=== PATIENT | male | born 1955 | race Caucasian/White ===

== ENCOUNTER 2021-09-04 14:19 | Emergency (ER) | payer OTHER, SELFPAY ==
[2021-09-04 14:29] VITALS: BP 179/59; PULSE 76; RESP 20; TEMP 36.5; O2SAT 96
--- NOTE | 2021-09-04 14:50 | ED.GENADULT ---
HPI - General Adult General Chief complaint: Upper Respiratory Infection Stated complaint: COUGH/CONGESTION Source: patient Mode of arrival: ambulatory Limitations: no limitations History of Present Illness HPI narrative: 66 y/o male. Pres[facility] to [facility] today with acute complaints of nasal congestion and cough, worsening in the past 5 days. Client tells me that he gets this a lot this time of year, and its usually a sinus infection . He states that he has been having purulent yellow nasal discharge. No fever, chills. No SPARROW, sore throat, Otalgia. No chest pain, palpitations, dyspnea, edema. He has not yet sought out medical evaluation until now. No ill contact exposure. He is without additional acute c/o illness upon PE. Related Data Allergies Allergy/AdvReac Type Severity Reaction Status Date / Time No Known Allergies Allergy Verified 09/04/21 14:29 Review of Systems Review of Systems: CONSTITUTIONAL: Denies fever, chills, sweats. EYES: Denies visual changes, redness, discharge. ENT: Denies rhinorrhea, congestion, sore throat, otalgia. CARDIOVASCULAR: RT chest wall pain. Denies palpitations, edema. RESPIRATORY: Denies dyspnea, wheezing, cough GASTROINTESTINAL: Denies abdominal pain, nausea, vomiting, diarrhea. GENITOURINARY: Denies dysuria, hematuria, abnormal discharge SKIN: Denies rash or itching. MUSCULOSKELETAL: Denies acute back pain, joint pain, or myalgia. NEUROLOGIC: Denies numbness, or focal weakness. PSYCHIATRIC: Denies anxiety or depression. All systems reviewed & are unremarkable except as noted in HPI and below Exam Narrative: GENERAL: This is a well-nourished, well-developed adult, in no apparent distress. HEAD: normocephalic, atraumatic. EYES: PERRL. Sclera clear/white. EARS: External ears normal, auditory canals clear and without drainage, TMs normal. NOSE: External nose normal. Positive Rhinorrhea, purulent bilateral nasal discharge. no obstruction, nares patent. THROAT: Mucous membranes moist, posterior pharynx erythematous. No exudates. NECK: Neck supple, non-tender without lymphadenopathy, masses or thyromegaly. CARDIOVASCULAR: Regular rate and rhythm without murmurs, gallops, or rubs. RESPIRATORY: Upper airway Rhonchi, cleared with cough. Breath sounds equal bilaterally. No wheezes, rales, or distress. GASTROINTESTINAL: Abdomen soft, non-tender, nondistended. Bowel sounds are active. No guarding. SKIN: warm, intact with no suspicious lesions or rash, good texture and turgor. NEURO: Alert, active, and age appropriate. No focal neurologic deficits. Course Vital Signs Vital signs: Vital Signs Temperature 36.5 C 09/04/21 14:29 Pulse Rate 76 09/04/21 14:29 Respiratory Rate 20 09/04/21 14:29 Blood Pressure 179/59 H 09/04/21 14:29 Pulse Oximetry 96 09/04/21 14:29 Temperature 36.5 C 09/04/21 14:29 Pulse Rate 76 09/04/21 14:29 Respiratory Rate 20 09/04/21 14: Blood Pressure 179/59 H 09/04/21 14:29 Pulse Oximetry 96 09/04/21 14:29 The patient has been informed that they may have pre-hypertension or Hypertension based on a BP reading in the clinic. It is recommended that the patient call the primary care provider listed on their discharge instructions or a physician of their choice as soon as possible (within 1-2week) to arrange follow up for further evaluation of possible pre-hypertension or hypertension. Medical Decision Making Differential Diagnosis Differential Diagnosis: Differential Diagnosis: Consideration of the following conditions may be warranted for the presenting problem, they are not final diagnoses: upper respiratory infection, otitis media, sinusitis, RSV viral infection, bronchitis, pharyngitis, Streptococcal sore throat, COVID-19, and other. Medical Records Medical records reviewed: Yes I reviewed the external patient's medical records. Vital Signs Vital Signs: Vital Signs Temperature 36.5 C 09/04/21 14:29 Pu
== END 2021-09-04 14:50 | disposition home or self-care (01) ==
PROVIDERS: Emergency Provider Nurse Practitioner Adult Health
DX: J06.9 Acute upper respiratory infection, unspecified (principal)
CPT/HCPCS: 99203; G0463

== ENCOUNTER 2022-02-26 12:33 | Emergency (ER) | payer OTHER, SELFPAY ==
[2022-02-26 12:45] VITALS: BP 199/63; PULSE 67; RESP 16; TEMP 36.2; O2SAT 98
--- NOTE | 2022-02-26 13:29 | ED.URI ---
HPI - URI/Sore Throat General Chief Complaint: Upper Respiratory Infection Stated Complaint: upper respiratory Time Seen by Provider: 02/26/22 13:21 Source: patient Mode of arrival: ambulatory Limitations: no limitations History of Present Illness HPI Narrative: Patient presents today complaining of a productive cough x2 weeks with nasal drainage. Reports sputum is yellow/green. Denies shortness of breath, fever, nasal congestion, or any additional symptoms. He has been taking Tylenol for his symptoms. 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 Patient was on doxycycline in November for 30 days prescribed by his PCP for unknown symptoms. Reports history of asthma as a child, but outgrew it. Reports he quit smoking 8 to 10 years ago. Related Data Home Medications Medication Instructions Recorded Confirmed atorvastatin 20 mg tablet 20 mg PO DAILY 02/26/22 02/26/22 clonidine HCl 0.1 mg tablet 0.1 mg PO DAILY 02/26/22 02/26/22 furosemide 40 mg tablet 40 mg PO DAILY 02/26/22 02/26/22 losartan 50 mg tablet 50 mg PO DAILY 02/26/22 02/26/22 prednisone 10 mg tablet 10 mg PO DAILY 02/26/22 02/26/22 Allergies Allergy/AdvReac Type Severity Reaction Status Date / Time No Known Allergies Allergy Verified 02/26/22 13:18 Review of Systems Review of Systems: CONSTITUTIONAL: Denies body aches, fever, chills, or sweats. EYES: Denies visual changes, redness, or discharge. ENT: Denies rhinorrhea, congestion, sore throat, or otalgia.+ Nasal drainage CARDIOVASCULAR: Denies chest pain, palpitations, or edema. RESPIRATORY: Denies dyspnea.+ Cough GASTROINTESTINAL: Denies abdominal pain, nausea, vomiting, or diarrhea. GENITOURINARY: Denies dysuria or hematuria. SKIN: Denies rash, itching, or wounds. MUSCULOSKELETAL: Denies back pain, joint pain, or myalgia. NEUROLOGIC: Denies headache, numbness, tingling, or weakness. PSYCH: Denies depression or anxiety. [facility] Past Medical History Medical History (Updated 02/26/22 @ 13:35 by Toshia Sanders, [employer], [place]) Minimal change disease Comments At time of signature, I have reviewed and agree with nursing past medical, surgical, social and family history unless otherwise noted. Please see nursing chart for further information. There is no relevant family history pertinent to the presenting complaint Exam Narrative: GENERAL: Well-appearing, well-nourished, and in no acute distress. HEAD: Normocephalic, atraumatic. EYES: EOMI. No redness or drainage. Conjunctivae normal. ENT: Mucous membranes pink and moist. Nares clear. No rhinorrhea. TMs normal bilaterally. Throat normal. Uvula midline. No sinus tenderness. NECK: Normal AROM. Supple. No lymphadenopathy. CHEST: No respiratory distress. Clear to auscultation. HEART: Regular rate and rhythm. No murmur appreciated. Normal peripheral pulses. EXTREMITIES: Normal range of motion. No edema. SKIN: Warm, dry, no rash. Capillary refill normal. Normal skin turgor. NEURO: No focal deficits. Alert and oriented x3. Gait steady. PSYCH: Normal affect. No signs of depression or anxiety. Course Course Level of Care: Express Care Visit Vital Signs Vital signs: Vital Signs Temperature 97.2 F L 02/26/22 12:45 Pulse Rate 67 02/26/22 12:45 Respiratory Rate 16 02/26/22 12:45 Blood Pressure 199/63 H 02/26/22 12:45 Pulse Oximetry 98 02/26/22 12:45 Oxygen Delivery Room Air 02/26/22 12:45 Temperature 97.2 F L 02/26/22 12:45 Pulse Rate 67 02/26/22 12:45 Respiratory Rate 16 02/26/22 12:45 Blood Pressure 199/63 H 02/26/22 12:45 Pulse Oximetry 98 02/26/22 12:45 Oxygen Delivery Room Air 02/26/22 12:45 Reviewed. Pt has been instructed to follow up with his PCP regarding his elevated blood pressure today. MDM - URI/Sore Throat Differential Diagnosis Differential diagnosis: Likely upper respiratory infection, sinusitis, viral infection, bronchitis and other (Pneum
== END 2022-02-26 13:39 | disposition home or self-care (01) ==
PROVIDERS: Emergency Provider Nurse Practitioner
DX: J06.9 Acute upper respiratory infection, unspecified (principal); N04.9 Nephrotic syndrome with unspecified morphologic changes
CPT/HCPCS: 99213; G0463